=== PATIENT | female | born 1970 | race Caucasian/White ===

== ENCOUNTER → 2016-08-19 12:52 | Outpatient (CLI) | payer BC ==
[2013-05-27 12:14] VITALS: BMI 20.1
[~2016-08-19 12:52] MED LIST: LOW-OGESTREL1 TAB PO
--- NOTE | 2016-08-23 11:12 | EC ---
PATIENT:FOX SWIFT DATE OF SERVICE: 08/19/16 SEX: F MEDICAL RECORD: [id number] DATE OF : 74 LOCATION:[facility] AGE OF PATIENT: 45 ADMISSION DATE: 08/19/16 REFERRING PHYSICIAN: INTERPRETING PHYSICIAN: VALDEMAR LEZAMA MD ECHOCARDIOGRAM REPORT ECHO CHARGES 4 ECHO COMPLETE CLINICAL DIAGNOSIS: MVP ECHOCARDIOGRAPHIC MEASUREMENTS (adult normal given) AC root (d.<3.7cm) 3.7 LV Septum d (<1.2 cm> 1.2 Valve Excursion 1.6 LV Septum (systole) 1.6 Left Atria (s.<4.0cm> 2.9 LVPW d(<1.2cm) 1.1 RV (d.<2.3cm) 2.4 LVPW (sytole) 1.5 LV diastole(<5.6CM) 4.6 MV E-F(>70mm/sec) LV systole 2.2 LVOT Diameter 1.5 MV exc.(>10mm) Est.ejection fraction (50-75%) Pericardial Effusion N DOPPLER: LVIT A 30.0 E 85.0 LA RVSP 37.0 LVOT 113 AOP1/2T Asc. Ao 171 RVOT 47.0 RA PA 81.0 AV Gradient Peak 12.0 AV Mean 5.1 AV Area 1.1 MV Gradient Peak 4.2 MV Mean 1.0 MV Area COMMENTS: Sheet Roller Operator: Richard DOHERTYOE Mail Inserter:1 Dr. Lezama TAPE# PACS DATE OF SERVICE: 08/19/2016 FINDINGS: 1. Left ventricular chamber size is within normal limits. Left ventricular systolic function is normal. Overall ejection fraction estimated at 55%. 2. Left atrium is within normal limits at 2.9 cm. Right atrium and right ventricular chamber sizes are as well normal. 3. Valvular structures have normal structure and motion. No mitral valve prolapse is seen. 4. Doppler interrogation only reveals trace mitral regurgitation, trace ECHOCARDIOGRAM REPORT [id number] [employer] SWIFT tricuspid regurgitation, neither of which are hemodynamically significant. 5. No evidence of pericardial effusion or left ventricular thrombus. Pulmonary systolic pressure is normal estimated at 37 mmHg. TRANSINT:[id number] Voice Confirmation ID: [id number] DOCUMENT ID: [id number] VALDEMAR LEZAMA MD at 1112 CC: [id number] DICTATION DATE: 08/20/16 1312 MANAGER REHAB: 08/20/16 1635 DEP CLI 08/19/16 [id number] [place] [address]
== END | disposition home or self-care (01) ==
LOC: D.ECHO 08-14 09:35
DX: I34.1 Nonrheumatic mitral (valve) prolapse (principal)

== ENCOUNTER → 2017-08-11 15:54 | Outpatient (CLI) | payer BC ==
[2013-05-27 12:14] VITALS: BMI 20.1
== END | disposition home or self-care (01) ==
LOC: D.MAMMO 12:00
DX: Z12.31 Encounter for screening mammogram for malignant neoplasm of breast (principal)

== ENCOUNTER 2018-12-09 19:00 | Outpatient (CLI) | payer BC ==
[2013-05-27 12:14] VITALS: BMI 20.1
== END 2018-12-09 23:59 | disposition home or self-care (01) ==
LOC: D.MAMMO 19:00
PROVIDERS: ATTEND Obstetrics & Gynecology
DX: Z12.31 Encounter for screening mammogram for malignant neoplasm of breast (principal)

== ENCOUNTER 2020-01-31 08:00 | Outpatient (CLI) | payer BC ==
[2013-05-27 12:14] VITALS: BMI 20.1
== END 2020-01-31 23:59 | disposition home or self-care (01) ==
LOC: D.MAMMO 08:00
PROVIDERS: ATTEND Obstetrics & Gynecology
DX: Z12.31 Encounter for screening mammogram for malignant neoplasm of breast (principal)